=== PATIENT | female | born 1985 | race African-American/Black ===

== ENCOUNTER 2020-08-08 15:36 | Emergency (ER) | payer SELFPAY ==
[2020-08-08 15:56] VITALS: BP 132/80; PULSE 66; RESP 20; TEMP 36.7; O2SAT 100
[2020-08-08 16:00] VITALS: BP 132/80; PULSE 66; RESP 20; TEMP 36.7; O2SAT 100
--- NOTE | 2020-08-08 16:28 | ED.GENADULT ---
HPI - General Adult General Chief complaint: Upper Respiratory Infection Stated complaint: asthma/chest tightness Time Seen by Provider: 08/08/20 16:29 Source: patient and RN notes reviewed Mode of arrival: ambulatory Limitations: no limitations History of Present Illness HPI narrative: 35-year-old -[place] female presents with complaints wheezing, shortness of breath, chest tightness, and chest congestion for the past 7 days. Joselin reports waking up this morning with increasing wheezing and used last albuterol nebulizer on 08/07/2020 with relief. Albuterol inhaler and Breo last used 1-2 weeks ago. History of Asthma and smoker. Intermittent cough and chest congestion. No rhinorrhea. Nasal congestion. Denies sore throat. No high fevers, drooling, neck or throat swelling. No chest pain. Denies nausea, vomiting, and abdominal pain. Tolerating liquids well. LMP 07/28 or 07/29/2020. Remains active. The patient reports she have not been diagnosed with COVID-19. The patient reports she is not waiting for the results of a COVID-19 lab test. The patient reports she do not have chills, weakness, or fatigue. The patient reports she do not have a worsening cough. The patient reports she do not have any loss of taste or smell and diarrhea. Moved from [place] 1.5 months ago. Denies concerns for COVID-19 or exposures been home with limited outdoor exposure except for essential household needs, work, and return home. At this time, patient is not suspected of having COVID-19. Some parts of this dictation were generated by voice recognition software and may contain typographical and/or grammatical inaccuracies. Related Data Home Medications Medication Instructions Recorded Confirmed albuterol sulfate 0.63 mg INHALATION Q6H 08/08/20 08/08/20 albuterol sulfate [ProAir HFA] 2 puff INHALATION QID PRN 08/08/20 08/08/20 fluticasone furoate-vilanterol 1 inh INHALATION DAILY 08/08/20 08/08/20 [Breo Ellipta] Allergies Allergy/AdvReac Type Severity Reaction Status Date / Time No Known Allergies Allergy Verified 08/08/20 15:54 Review of Systems Review of Systems: Narrative: CONSTITUTIONAL: Denies fever, sweats, chills, fatigue. EYES: Denies visual changes, redness, discharge. ENT: Complains of congestion. Denies rhinorrhea, sore throat, otalgia. CARDIOVASCULAR: Denies chest pain, palpitations, edema. RESPIRATORY: Complains of intermittent cough, chest congestion, dyspnea, wheezing. GASTROINTESTINAL: Denies abdominal pain, nausea, vomiting, diarrhea. SKIN: Denies rash or itching. MUSCULOSKELETAL: Denies acute back pain, joint pain, or myalgia. NEUROLOGIC: Denies numbness or focal weakness. PSYCHIATRIC: Denies anxiety or depression. [facility] Past Medical History Medical History (Updated 08/09/20 @ 00:01 by Emmanuel Andujar) Asthma Ex-smoker for less than 1 year 2 months Obesity Surgical History Surgical History (Updated 08/08/20 @ 16:41 by TYLER Campbell) History of gastric bypass Family History Family History (Updated 08/08/20 @ 16:42 by TYLER Campbell) Father Alive and well Mother Hypertension Social History Social History (Updated 08/08/20 @ 16:43 by TYLER Campbell) Smoking status: Former smoker Tobacco type: cigarettes Second hand tobacco smoke exposure: No Additional smoking assessment comments: Stop smoking 2 months ago Alcohol intake: current Substance use: never Living arrangements: with family Occupation/Education: occupation Gender identity (if verbalized by the patient): Female Comments At time of signature, agree with nurse past medical, surgical, social, and family history. There is relevant patient's history pertinent to the presenting complaint, no relevant family history pertinent to the presenting complaint. Exam Narrative: Exam Narrative: GENERAL: This is a well-nourished, well-developed patient, in no apparent distress. Talks in full sentences and a
== END 2020-08-08 17:02 | disposition home or self-care (01) ==
PROVIDERS: Emergency Provider Nurse Practitioner Family
DX: J45.901 Unspecified asthma with (acute) exacerbation (principal); Z87.891 Personal history of nicotine dependence; Z98.84 Bariatric surgery status
CPT/HCPCS: 99213; G0463

== ENCOUNTER 2020-11-19 03:45 | Emergency (ER) | payer SELFPAY ==
--- NOTE | ~2020-11-19 | XR_ITS ---
XR chest 2V DATE: 11/19/2020 04:36 INDICATION: Chest pain with inspiration TECHNIQUE: PA and lateral views COMPARISON: None FINDINGS: Normal heart size. No hilar or mediastinal enlargement. No pulmonary infiltrate or consolid ation, pleural effusion or pulmonary vascular congestion or pneumothorax. IMPRESSION: Negative Reviewed, dictated and finalized at location A. IMPRESSION: Negative
[2020-11-19 03:58] VITALS: BP 141/70; PULSE 79; RESP 16; TEMP 36.9; O2SAT 99
--- NOTE | 2020-11-19 04:00 | ECG_ITS ---
Measurements Intervals [place] Rate: 68 P: 47 DC: 169 QRS: 11 QRSD: 83 T: 4 QT: 409 QTc: 436 Interpretive Statements SINUS RHYTHM NONSPECIFIC ST & T-WAVE ABNORMALITY- ANT/INF LEADS BORDERLINE ECG Electronically Signed On 11-19-2020 6:04:05 CDT by Danial Ashley D.O.
[2020-11-19 04:19] LABS: Basophils Percent Auto 0.5 % (0.2-1.2); Eosinophils Absolute Auto 0.3 K/mm3 (0-0.3); Eosinophils Percent Auto 4.2 % (0-4.4); Hematocrit 33.2 % (37.0-47.0); Hemoglobin 10.2 g/dL (12.0-15.0); Immature Granulocyte Absolute 0.01 K/mm3 (0.00-0.031); Immature Granulocyte Percent A 0.2 % (0-0.5); Lymphocytes Absolute Auto 2.89 K/mm3 (0.9-3.2); Lymphocytes Percent Auto 44.8 % (18.3-44.2); Mean Corpuscular HGB Conc 30.7 g/dl (32-36); Mean Corpuscular Hemoglobin 24.9 pg (26-34); Mean Platelet Volume 9.1 fl (7.4-10.4); Monocytes Absolute Auto 0.6 K/mm3 (0.1-0.6); Monocytes Percent Auto 9.3 % (2.6-8.5); Neutrophils Absolute Auto 2.7 K/mm3 (1.3-6.7); Platelet Count Result 265 k/mm3 (150-375); Red Cell Distribution Width 15.2 % (11.5-14.5); White Blood Count 6.5 K/mm3 (4.5-10.0)
[2020-11-19 04:34] LABS: Add Urine Microscopic? YES; Appearance Urine Clear (Clear); Bilirubin Urine Negative (Negative); Blood Urine Negative (Negative); Color Urine Yellow (Yellow); Glucose Urine UA Negative (Negative); Ketones Urine Negative (Negative); Leukocyte Esterase Ur Negative LEU/UL (Negative); Mucus Urine Rare /lpf; Nitrate Urine Negative (Negative); Protein Urine Negative (Negative); RBC Urine 0-2 /hpf (0-2); Specific Grav Ur 1.023 (1.001-1.035); Squamous Epithelial Cell Urine Rare /hpf (Few); WBC Urine 0-3 /hpf
[2020-11-19 04:35] LABS: Anion Gap 6 mmol/L (8-16); Blood Urea Nitrogen 11 mg/dL (7-17); Calcium 8.2 mg/dL (8.4-10.2); Carbon Dioxide 27 mmol/L (22-30); Chloride 101 mmol/L (98-107); Estimated CRCL calculation 131 ml/min; Estimated Glomerular Filt Rate > 60; Glucose 84 mg/dL (65-110); Potassium 3.7 mmol/L (3.4-5.0); Sodium 134 mmol/L (137-145)
--- NOTE | 2020-11-19 07:03 | ED.SOB ---
HPI - SOB/Dyspnea General Chief Complaint: Shortness of Breath/Dyspnea Stated Complaint: R sided rib pain with breathing Time Seen by Provider: 11/19/20 07:03 Source: patient and family Mode of arrival: ambulatory Limitations: no limitations History of Present Illness HPI Narrative: Patient is a 35-year-old female with a history of asthma who presents for evaluation of chest pain. Patient states chest pain awakened her from sleep at 2 in the morning, described as a sharp, pinpoint sensation over her right lower chest. She does report pain with breathing. She denies any current shortness of breath. She denies fever or cough. No leg swelling or calf pain. No history of coagulopathy. Patient is not on any control or hormone supplementation. She does use electronic cigarettes/vaping. She denies any other drug use. She has no history of Covid. She is vaccinated for Covid. Patient states that since she has been sitting upright, the pain has mostly resolved. She denies family history of sudden cardiac or coronary artery disease at a young age. She denies any wheezing. No radiation of the pain to the upper chest, jaw, neck or back. No shoulder pain. Denies flank pain. No nausea, vomiting or diaphoresis. Related Data Home Medications Medication Instructions Recorded Confirmed albuterol sulfate 0.63 mg INHALATION Q6H 08/08/20 08/08/20 albuterol sulfate [ProAir HFA] 2 puff INHALATION QID PRN 08/08/20 08/08/20 fluticasone furoate-vilanterol 1 inh INHALATION DAILY 08/08/20 08/08/20 [Breo Ellipta] Allergies Allergy/AdvReac Type Severity Reaction Status Date / Time No Known Allergies Allergy Verified 11/19/20 07:06 Review of Systems Review of Systems: CONSTITUTIONAL: Denies fever, chills, or sweats. EYES: Denies visual changes, redness, or discharge. ENT: Denies rhinorrhea, congestion, sore throat, or otalgia. CARDIOVASCULAR: Reports right sided chest pain, mostly resolved RESPIRATORY: Denies cough or dyspnea. GASTROINTESTINAL: Denies abdominal pain, nausea, vomiting, or diarrhea. GENITOURINARY: Denies dysuria or hematuria. SKIN: Denies rash or itching. MUSCULOSKELETAL: Denies back pain, joint pain, or myalgia. NEUROLOGIC: Denies headache, numbness, or weakness. PMFSH Past Medical History Medical History Asthma Ex-smoker for less than 1 year 2 months Obesity Surgical History Surgical History History of gastric bypass Family History Family History Father Alive and well Mother Hypertension Social History Social History Smoking status: Former smoker Tobacco type: cigarettes Second hand tobacco smoke exposure: No Additional smoking assessment comments: Stop smoking 2 months ago Alcohol intake: current Substance use: never Gender identity (if verbalized by the patient): Female Exam Narrative: GENERAL: Awake, alert, conversant HEAD: Normocephalic, atraumatic. EYES: PERRLA and EOMI. ENT: Nares clear, no rhinorrhea or epistaxis. Mucous membranes moist. NECK: Supple. CHEST: No respiratory distress, breathing even and non labored, mild right chest wall pain on exam, lungs clear bilaterally in all lung miguel HEART: Regular rate, sinus rhythm ABDOMEN:Non distended, non tender EXTREMITIES: Normal range of motion. No edema. SKIN: Warm, dry, no rash. NEURO:No focal deficits. Alert and oriented x3 Course Vital Signs Vital signs: Vital Signs Temperature 36.9 C 11/19/20 03:58 Pulse Rate 79 11/19/20 03:58 Respiratory Rate 16 11/19/20 03:58 Blood Pressure 141/70 H 11/19/20 03:58 Pulse Oximetry 99 11/19/20 03:58 Temperature 36.8 C 11/19/20 07:05 Pulse Rate 66 11/19/20 07:29 Respiratory Rate 15 11/19/20 07:29 Blood Pressure 121/72 11/10
[2020-11-19 07:05] VITALS: BP 129/85; PULSE 64; PULSE 67; RESP 12; TEMP 36.8; O2SAT 99
[2020-11-19 07:29] VITALS: BP 121/72; PULSE 66; RESP 15; O2SAT 98
--- NOTE | 2020-11-19 07:30 | PC.NURSE ---
Assumed care of pt, pt is alert and upright on stretcher, VSS. Discussed POC.
[2020-11-19 07:46] LABS: Troponin I < 0.012 ng/mL (0.000-0.034)
[2020-11-19 08:13] VITALS: BP 107/65; PULSE 64; RESP 15; O2SAT 98
== END 2020-11-19 08:14 | disposition home or self-care (01) ==
PROVIDERS: General Practice; Emergency Provider Emergency Medicine
DX: R07.89 Other chest pain (principal); Z87.891 Personal history of nicotine dependence
CPT/HCPCS: 36415; 71046; 80048; 81001; 81025; 84484; 85025; 93005; 99284

== ENCOUNTER 2021-03-02 15:16 | Emergency (ER) | payer SELFPAY ==
--- NOTE | ~2021-03-02 | XR_ITS ---
EXAMINATION: XR chest 2V DATE: 03/02/2021 15:45 INDICATION: Asthma presenting with shortness of breath TECHNIQUE: frontal and lateral views of the chest were obtained. COMPARISON: Chest radiograph dated 11/19/2020 FINDINGS: The lungs remain clear with no focal airspace opacities, pulmonary edema, pleural effusion or pneumot horax. The cardiomediastinal silhouette is normal. Mild scattered thoracic spondylosis. IMPRESSION: 1. No acute cardiopulmonary disease. Reviewed, dictated and finalized at location A. RECORDER
[2021-03-02 15:20] VITALS: BP 141/78; PULSE 64; RESP 16; TEMP 36.6; O2SAT 100
--- NOTE | 2021-03-02 15:36 | ED.GENADULT ---
HPI - General Adult General Chief complaint: Upper Respiratory Infection Stated complaint: ASTHMA/WHEEZING Source: patient Mode of arrival: ambulatory Limitations: no limitations History of Present Illness HPI narrative: Patient presents for evaluation of chest tightness. She has an underlying history of asthma and current symptoms are consistent with those previously experienced with asthma. Symptom onset today. She has had an occasional cough, nonproductive. She had some wheezing earlier today that has since resolved. She denies any fever, chills, chest pain, shortness of breath, nausea, vomiting. No recent sick contacts. She works at the [employer] and believes that exposure to dust there led to her current symptoms. She does not have a PCP. She states she needs solution for her neb machine and would also like a new rescue inhaler. She states that the mouthpiece to her neb machine is broken. She does not smoke. She has received both doses of her COVID vaccination. No additional complaints or concerns. Related Data Home Medications Medication Instructions Recorded Confirmed albuterol sulfate 03/02/21 albuterol sulfate INHALATION 03/02/21 Allergies Allergy/AdvReac Type Severity Reaction Status Date / Time No Known Allergies Allergy Verified 03/02/21 15:26 Review of Systems Review of Systems: CONSTITUTIONAL: Denies fever, chills, or sweats. EYES: Denies visual changes, redness, or discharge. ENT: Denies rhinorrhea, congestion, sore throat, or otalgia. CARDIOVASCULAR: Denies chest pain, palpitations, or edema. RESPIRATORY: Reports chest tightness and occasional cough. Reports wheezing earlier, now resolved. Denies shortness of breath. GASTROINTESTINAL: Denies abdominal pain, nausea, vomiting, or diarrhea. GENITOURINARY: Denies dysuria or hematuria. SKIN: Denies rash or itching. MUSCULOSKELETAL: Denies back pain, joint pain, or myalgia. NEUROLOGIC: Denies headache, numbness, dizziness, or weakness. PSYCHIATRIC: Denies anxiety or depression. [facility] Past Medical History Medical History Asthma Ex-smoker for less than 1 year 2 months Obesity Surgical History Surgical History History of gastric bypass Family History Family History Father Alive and well Mother Hypertension Social History Social History Smoking status: Former smoker Tobacco type: cigarettes Second hand tobacco smoke exposure: No Additional smoking assessment comments: Stop smoking 2 months ago Alcohol intake: current Substance use: never Gender identity (if verbalized by the patient): Female Exam Narrative: GENERAL: Well-appearing, well-nourished, and in no acute distress. HEAD: Normocephalic, atraumatic. EYES: PERRLA and EOMI. ENT: Nares clear, no rhinorrhea or epistaxis. Mucous membranes moist. Oropharynx without tonsillar hypertrophy exudate or other lesions. Bilateral TMs pearly barnett nonbulging NECK: Supple. No adenopathy or masses. No carotid bruits or JVD CHEST: Clear to auscultation. No respiratory distress. No wheezes rales or rhonchi HEART: Regular rate and rhythm. No murmur heard. Normal peripheral pulses. ABDOMEN: Soft, nontender, nondistended, normal active bowel sounds. EXTREMITIES: Normal range of motion. No edema. SKIN: Warm, dry, no rash. NEURO: No focal deficits. Alert and oriented x3. PSYCH: Normal mood and affect. Course Course Emergency Course: This is a 36-year-old female who presented with reports of chest tightness consistent with her asthma. Chest x-ray was negative. She was given a nebulizer treatment. We will refill her albuterol neb solution, albuterol MDI and she will also receive a script for prednisone. She was provided with mouthpiece for her
[2021-03-02] MEDS: IPRATROPIUM BR 0.02% INH SOLN 0.5 MG/2.5 ML VIAL INHALATION (15:52)
[2021-03-02] MEDS: ALBUTEROL SULFATE NEB 2.5 MG/3 ML INH INHALATION (15:52)
[2021-03-02 16:13] VITALS: PULSE 64; RESP 16; O2SAT 100
== END 2021-03-02 16:13 | disposition home or self-care (01) ==
PROVIDERS: Emergency Provider Nurse Practitioner
DX: J45.901 Unspecified asthma with (acute) exacerbation (principal); Z87.891 Personal history of nicotine dependence; E66.9 Obesity, unspecified; Z68.43 Body mass index [BMI] 50.0-59.9, adult; Z98.84 Bariatric surgery status
CPT/HCPCS: 71046; 99213; G0463

== ENCOUNTER 2021-03-18 14:49 | Emergency (ER) | payer SELFPAY ==
[2021-03-18 14:52] VITALS: BP 144/85; PULSE 86; RESP 16; TEMP 36.4; O2SAT 100
--- NOTE | 2021-03-18 14:52 | ED.URI ---
HPI - URI/Sore Throat General Chief Complaint: Upper Respiratory Infection Stated Complaint: COLD SYMPTOMS Time Seen by Provider: 03/18/21 14:52 Source: patient and RN notes reviewed History of Present Illness HPI Narrative: Patient is a 36-year-old female who presents the urgent care with complaints of cold-like symptoms for the last week. Patient states that she feels much better but did not go to work and needs evaluated before she can return . Patient has been taking DayQuil and NyQuil and states that she has some residual stuffy nose and postnasal drainage but otherwise denies of any sick symptoms. Denies of any fever, chills, nausea, vomiting, cough. Denies of any known exposures to Covid or influenza. States that she had a negative Covid test with the results yesterday. No other acute complaints. No acute distress noted. Patient read the plan of care. Some parts of this dictation were generated by voice recognition software and may contain typographical and/or grammatical inaccuracies. Related Data Home Medications Medication Instructions Recorded Confirmed albuterol sulfate 03/02/21 Allergies Allergy/AdvReac Type Severity Reaction Status Date / Time No Known Allergies Allergy Verified 03/02/21 15:26 Review of Systems Review of Systems: CONSTITUTIONAL: Denies fever, chills, or sweats. EYES: Denies visual changes, redness, or discharge. ENT: Reports of rhinorrhea, postnasal drainage and nasal congestion CARDIOVASCULAR: Denies chest pain, palpitations, or edema. RESPIRATORY: Denies cough or dyspnea. GASTROINTESTINAL: Denies abdominal pain, nausea, vomiting, or diarrhea. GENITOURINARY: Denies dysuria or hematuria. SKIN: Denies rash or itching. MUSCULOSKELETAL: Denies back pain, joint pain, or myalgia. NEUROLOGIC: Denies headache, numbness, or weakness. All other systems reviewed are negative, except as documented in HPI. ON LICENSE OF [facility] Past Medical History Medical History Asthma Ex-smoker for less than 1 year 2 months Obesity Surgical History Surgical History History of gastric bypass Family History Family History Father Alive and well Mother Hypertension Social History Social History Smoking status: Former smoker Tobacco type: cigarettes Second hand tobacco smoke exposure: No Additional smoking assessment comments: Stop smoking 2 months ago Alcohol intake: current Substance use: never Gender identity (if verbalized by the patient): Female Comments At the time of my signature, I reviewed and agree with the nursing past medical, surgical, social, and family history. There is no relevant family history pertinent to the patient complaint. Exam Narrative: GENERAL: This is a well-nourished, well-developed patient, in no apparent distress. HEAD: normocephalic, atraumatic. EYES: PERRL. Sclera clear/white. Vision is grossly intact. EARS: External ears normal, auditory canals clear and without drainage, TMs normal without perforation. Hearing grossly intact. NOSE: External nose normal with no obvious nasal discharge, nares without redness, clear rhinorrhea. THROAT: Mucous membranes moist, posterior pharynx clear. Moderate postnasal drainage NECK: Neck supple CARDIOVASCULAR: Regular rate and rhythm without murmurs, gallops, or rubs. RESPIRATORY: Clear to auscultation. Breath sounds equal bilaterally. No wheezes, rales, or rhonchi. SKIN: warm, intact with no suspicious lesions or rash, good texture and turgor. NEURO: awake, alert, and oriented to person, place and time. There were no obvious focal neurologic abnormalities. EXTREMITIES: No clubbing, cyanosis, or edema. Course Vital Signs Vital signs: Vital Signs Temperature 97.6 F 03/18/21 14:52
== END 2021-03-18 15:10 | disposition home or self-care (01) ==
PROVIDERS: Emergency Provider Nurse Practitioner Family
DX: J00 Acute nasopharyngitis [common cold] (principal); Z87.891 Personal history of nicotine dependence; J45.909 Unspecified asthma, uncomplicated; E66.9 Obesity, unspecified; Z68.43 Body mass index [BMI] 50.0-59.9, adult; Z98.84 Bariatric surgery status
CPT/HCPCS: 99211; G0463

== ENCOUNTER 2023-04-28 14:44 | Outpatient (CLI) | payer BC, SELFPAY ==
[2023-04-28 18:43] LABS: Hemoglobin 11.1 g/dL (12.0-15.0); Mean Corpuscular HGB Conc 30.8 g/dl (32-36); Mean Corpuscular Hemoglobin 24.2 pg (26-34); Mean Corpuscular Volume 78.6 fl (80-100); Mean Platelet Volume 9.5 fl (7.4-10.4); Platelet Count Result 298 k/mm3 (150-375); Red Blood Count 4.58 M/mm3 (4.2-5.4); Red Cell Distribution Width 16.5 % (11.5-14.5); White Blood Count 7.1 K/mm3 (4.5-10.0)
[2023-04-28 19:11] LABS: Alanine Aminotransferase 16 U/L (6-35); Albumin Level 3.7 g/dL (3.5-5.1); Alkaline Phosphatase 45 U/L (38-126); Anion Gap 4 mmol/L (8-16); Aspartate Amino Transferase 36 U/L (14-36); Bilirubin,Total 0.5 mg/dL (0.2-1.3); Blood Urea Nitrogen 11 mg/dL (7-17); Calcium 8.9 mg/dL (8.4-10.2); Carbon Dioxide 29 mmol/L (22-30); Chloride 102 mmol/L (98-107); Cholesterol 181 mg/dL (0-200); Estimated Glomerular Filt Rate > 60; Glucose 91 mg/dL (65-110); HDL Direct 59 mg/dL; Potassium 4.3 mmol/L (3.4-5.0); Sodium 135 mmol/L (137-145); Triglycerides 119 mg/dL (<150)
[2023-04-28 19:12] LABS: Vitamin D 25 Hydroxy 15.4 ng/mL
[2023-04-28 19:19] LABS: LDL Cholesterol Direct 90 mg/dL
== END 2023-04-28 14:45 | disposition home or self-care (01) ==
LOC: ANHGOSHLAB 14:46
PROVIDERS: PCP Family Medicine; Visit Provider Nurse Practitioner
DX: Z00.00 Encounter for general adult medical examination without abnormal findings (principal); E55.9 Vitamin D deficiency, unspecified
CPT/HCPCS: 36415; 80053; 80061; 82306; 84443; 85027

== ENCOUNTER 2023-05-19 09:29 | Outpatient (CLI) | payer BC, SELFPAY ==
--- NOTE | 2023-06-01 18:14 | WPDHOMESLEEP ---
Sleep Study - Home Unattended Date of Study: 05/19/23 Ordering Provider: MARK MontanoC Interpreting Provider: Kylie Yu, DO Home Sleep Study Type: Watch PAT Height: 1.63 m Weight: 154.221 kg Body Mass Index: 58.3 Neck Circumference (inches): 17 [place]: 16 Reason for Sleep Study Previously diagnosed KARIS and was on BPAP. Hasn't used PAP in 3 years. Sleep History The patient is a 38-year-old female with anxiety, depression, GERD, asthma, seasonal allergies, morbid obesity and history of tobacco use that had a sleep study ordered for evaluation of sleep apnea. The patient occasionally awakens from sleep short of breath. She frequently awakens at night with heartburn, belching or cough. She constantly snores loudly enough that others complain. She frequently has trouble sleeping when she has a cold. She rarely wakes up gasping for air throughout the night. She occasionally has breathing problems at night observed by herself or others. She occasionally sweats excessively at night. She occasionally has heart palpitations or irregular heartbeats during the night. She occasionally falls asleep during the day but never while driving. She denies sleep paralysis and cataplexy. She occasionally has trouble at school or work due to sleepiness. She rarely experiences vivid dreamlike scenes upon awakening or falling asleep. She denies feeling afraid of going to sleep. She rarely has nightmares. She rarely remembers her dreams. She constantly has thoughts racing through her mind. She frequently feels sad, depressed and anxious. She occasionally has muscular tension. She occasionally notices parts of her body jerk. She occasionally kicks during the night. She rarely has crawling and aching feelings in her legs and rarely has leg pain during the night. She denies grinding her teeth during sleep. She rarely awakens with morning jaw pain. She is rarely bothered by pain during the day and rarely awakened by pain during the night. She occasionally wakes up feeling stiff in the morning. She occasionally wakes up with sore or achy muscles. She occasionally wakes up with pain in the neck, spine and other joints. She goes to bed at midnight on weekdays and between 3-4 a.m. on the weekends. It takes her 30-60 minutes to fall asleep. She wakes up a minimum of 2 times throughout the night for unknown reasons and she will play a game on her phone for 5-10 minutes until she is able to fall back asleep. She wakes up at 5:30 a.m. on weekdays and at noon on the weekends. She typically gets 4-5 hours of sleep per night. She will stay in bed for a few minutes after waking up in the morning. She currently lives with her fiance. She denies consuming any caffeinated beverages within 2 hours of bedtime. She denies engaging in physical exercise before bedtime. She will watch television before falling asleep. She will take naps in afternoon or the evening but they are not refreshing. She consumes 2 caffeinated beverages per day. She quit smoking cigarettes 3 years ago. She will have a few alcoholic beverages every other day. She currently vapes marijuana daily. [facility] Past Medical History Medical History Asthma Ex-smoker for less than 1 year 2 months Obesity Surgical History Surgical History History of gastric bypass Family History Family History Father Alive and well Mother Hypertension Social History Social History Smoking status: Current every day smoker (vape and marijuana) Tobacco type: e-cigarettes/vaping Second hand tobacco smoke exposure: No Additional smoking assessment comments: Stop smoking 2 months ago Alcohol intake: current Substance use: never Lack of Transportation: N
[2023-06-01 18:15] VITALS: BMI 58.3
== END 2023-05-21 07:30 | disposition home or self-care (01) ==
LOC: ANHCSM 09:31
PROVIDERS: PCP Family Medicine; Visit Provider Nurse Practitioner
DX: G47.33 Obstructive sleep apnea (adult) (pediatric) (principal)
CPT/HCPCS: 95800

== ENCOUNTER 2023-06-03 12:50 | Outpatient (CLI) | payer BC, SELFPAY | END 2023-06-03 12:51 | disposition home or self-care (01) | LOC: ANHAUDASC 12:50 | PROVIDERS: PCP Family Medicine; Visit Provider Nurse Practitioner | DX: H90.72 Mixed conductive and sensorineural hearing loss, unilateral, left ear, with unrestricted hearing on the contralateral side (principal) | CPT/HCPCS: 92557; 92567 ==

== ENCOUNTER 2025-02-21 13:39 | Outpatient (CLI) | payer BC, SELFPAY ==
--- OUTSIDE RECORDS SUMMARY | 2025-02-21 14:43 | XMS_ITS | Clinical Summary ---
Author Organization [facility] Address [address] [place] [address] Care Team Providers Care Manager Hematology Name Role Phone Dina Ceron DO Primary Care Provider [phone] Allergies No known active allergies Medications LORazepam (ATIVAN) 0.5 mg tablet Take 1 tablet (0.5 mg total) by mouth every 8 (eight) hours as needed for anxiety (Panic attack) 4 tablet 02/01/2023 Active Social History Tobacco Use Types Packs/Day Years Used Date Smoking Tobacco: Never Assessed Personal Safety Answer Date Recorded Getting School Help Needed Not on file 03/30 Comments Unknown Sex and Gender Information Value Date Recorded Sex Assigned at Not on file Legal Sex Female 6:46 PM CDT Gender Identity Not on file Sexual Orientation Not on file Last Filed Vital Signs Vital Sign Reading Time Taken Comments Blood Pressure 150/72 02/01/2023 10:57 PM CDT Pulse 64 02/01/2023 10:57 PM CDT Temperature 36.6 C (97.8 F) 02/01/2023 10:57 PM CDT Respiratory Rate 16 02/01/2023 10:57 PM CDT Oxygen Saturation 98% 02/01/2023 10:57 PM CDT Inhaled Oxygen Concentration - - Weight 149.7 kg (330 lb) 02/01/2023 7:02 PM CDT Height 162.6 cm (5' 4) 02/01/2023 7:02 PM CDT Body Mass Index 56.64 02/01/2023 7:02 PM CDT Plan of Treatment Health Maintenance Due Date Last Done Comments Cervical Cancer Screening 1986 Depression Screening 1986 Hepatitis C Screening 1986 DTaP/Tdap/Td Vaccine (1 - Tdap) 1997 Varicella Vaccines (1 of 2 - 13+ 2-dose series) 1999 Hepatitis B Screening 01/18/2004 Regular Well Visit/Exam 18-64 01/18/2004 HPV Vaccines (1 - 3-dose SCD M series) 2013 Covid-19 Vaccine (4 - 2024-2 6 season) 2024 06/26/2021, 11/11/2020, 10/21/2020 Influenza Vaccine (#1) 2024 Pneumococcal vaccine <65 Aged Out No longer eligible based on patient's age to complete this topic Insurance [employer] Care Teams Manager Hematology Relationship Specialty Start Date End Date Dina Ceron DO PCP - General Family Medicine 02/01/23
--- OUTSIDE RECORDS SUMMARY | 2025-02-21 14:43 | XMS_ITS | Patient Health Record ---
Author Organization [facility] Address [address] [place] [address] Care Team Providers Care Fish Hatchery Man Name Role Phone Samuel Reveles [phone] Reason For Referral No Information Medications Medication SIG (Take, Route, Frequency, Duration) Notes Start Date End Date Status methylPREDNISolone 4 MG Tabl et Therapy Pack Oral Active Albuterol Sulfate 0.63 MG/3M L Nebulization Solution Inhalation Active LORazepam 0.5 MG Tablet Oral Active ProAir HFA 108 (90 Base) MCG/ACT Aerosol Solution Inhalation Act elena Social History Social History Additional Details Category Social Info Options Details Migrated Social History Migrated Social History Tobacco Years: Current every day smoker 02/18/2023 Plan Of Treatment No Information Insurance Providers Payer Name Payer Address Payer Phone Subscriber Number Group Number Insured Name Patient Relationship to Insured Coverage Start Date Coverage End Date [facility] [address] [place] [address] [id number] MEENU NAVARRO Self - patient is the insured
[2025-02-21 16:08] LABS: Hematocrit 34.5 % (37.0-47.0); Hemoglobin 10.7 g/dL (12.0-15.0); Mean Corpuscular HGB Conc 31.0 g/dl (32-36); Mean Corpuscular Hemoglobin 24.0 pg (26-34); Mean Corpuscular Volume 77.4 fl (80-100); Platelet Count Result 365 k/mm3 (150-375); Red Blood Count 4.46 M/mm3 (4.2-5.4); White Blood Count 6.3 K/mm3 (4.5-10.0)
[2025-02-21 16:20] LABS: Alanine Aminotransferase 13 U/L (6-35); Albumin Level 4.0 g/dL (3.5-5.1); Alkaline Phosphatase 46 U/L (38-126); Anion Gap 7 mmol/L (4-12); Aspartate Amino Transferase 27 U/L (14-36); Bilirubin,Total 0.5 mg/dL (0.2-1.3); Blood Urea Nitrogen 12 mg/dL (7-17); Calcium 8.7 mg/dL (8.4-10.2); Carbon Dioxide 27 mmol/L (22-30); Chloride 101 mmol/L (98-107); Cholesterol 194 mg/dL (0-200); Estimated Glomerular Filt Rate > 60; Glucose 86 mg/dL (65-110); HDL Direct 73 mg/dL; Potassium 4.0 mmol/L (3.4-5.0); Sodium 135 mmol/L (137-145); Total Protein 7.8 g/dL (6.3-8.2); Triglycerides 76 mg/dL (<150)
[2025-02-21 16:55] LABS: Thyroid Stimulating Hormone 1.930 uIU/mL (0.465-4.680)
[2025-02-23 10:24] LABS: Iron 41 ug/dL (37-170)
[2025-02-23 10:36] LABS: Percent Iron Saturation 9 % (20-50)
[2025-02-23 11:05] LABS: Ferritin 7.28 ng/mL (6.24-137)
== END 2025-02-21 13:40 | disposition home or self-care (01) ==
LOC: ANHGOSHLAB 13:40
PROVIDERS: PCP Family Medicine; Visit Provider Family Medicine
DX: E78.5 Hyperlipidemia, unspecified (principal); E66.9 Obesity, unspecified; Z79.899 Other long term (current) drug therapy; D64.9 Anemia, unspecified
CPT/HCPCS: 36415; 80053; 80061; 82306; 82728; 83540; 83550; 84443; 85027